=== PATIENT | female | born 1965 | race Caucasian/White ===

== ENCOUNTER → 2016-04-11 | Outpatient (CLI) | payer BC ==
[~2016-04-11] VITALS: Ht 162.6 cm; Wt 86.5 kg
[~2016-04-11] MED LIST: AMITRIPTYLINE H10 M3 PO; DULCOLAX5 MG PO; FIBER LAXATIVE500 MG PO; KLONOPIN0.5 MG PO; MIRALAX17 GM PO; NEURONTIN 300300 M1 PO; ONDANSETRON HCL4 M2 PO; OXYCODONE PO; PREVACID30 MG PO; ZANAFLEX4 M2 PO
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
[2016-04-11 10:39] VITALS: BP 124/79
== END | disposition home or self-care (01) ==
LOC: PAIN 07:15
DX: M94.0 Chondrocostal junction syndrome [Tietze] (principal)

== ENCOUNTER → 2016-08-02 | Outpatient (CLI) | payer BC ==
[~2016-08-02] VITALS: Ht 162.6 cm; Wt 88.8 kg
[~2016-08-02] MED LIST changes: +AMITRIPTYLINE H25 M2 PO
--- NOTE | ~2016-08-02 | HPC ---
[facility] [address] [place] [address] PAIN MANAGEMENT CONSULTATION Name: CHRISTIANO MEJIA Room #: REG LAURIE DiamondJennDoroteoJenn#: [id number] Admission: 08/02/16 Attend Phys: Olga Pineda MD Discharge: Date of : 67 Report #: [id number] THIS REPORT FOR: //name// CC: HALEY Pineda DATE OF SERVICE: 08/02/2016 PRIMARY CARE PHYSICIAN: Dr. Haley Alicea. The patient states she lives about [address] from here and she lives in [place], [place]. She said that her physician has not gotten previous dictations. Again, his name is Haley Alicea M.D. CHIEF COMPLAINT: " I have noticed that the pain is coming back around the left side again." FOLLOWUP HISTORY: The patient is a 50-year-old female who has been seen in the pain clinic in the past because of costochondritis. This involves the left side. She had some on the right side as well. She has undergone injections, trigger point to these areas in the past. She received greater than 4 months of improvement. 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 Sometimes it requires moving cases of Pop and other items around. When she has done this, she has noted exacerbation of her costochondritis, particularly on the left. She has tried to do less of that and has had less pain as a result. 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 She feels that Elavil 30 mg at bedtime has been quite helpful. Once she falls asleep, she is able to sleep comfortably through the night. She also finds that Zanaflex medication as a muscle relaxant is helpful. She has had no complications from the previous treatments nor from her medications. She has driven 3 [address] to [place] for another treatment course. PHYSICAL EXAMINATION: Blood pressure 123/94, pulse 77, respiratory rate 16, room air saturation 98%. The patient has pain and discomfort in the left costophrenic area. Palpation over the manubrium and sternal area reproduces pain and discomfort. She notes that there is some pain on the right side of the manubrium as well as pain radiating along the left to approximately T8 or T9. IMPRESSION: Left costochondritis, which is improved after infiltration of the area with local anesthetic and steroid. RECOMMENDATIONS: We discussed treatment options again with the patient. Risks and benefits of trigger point injections, which could include increased muscle soreness, discoloration of the skin with less tanning ability secondary to [facility] [address] [place] [address] PAIN MANAGEMENT CONSULTATION Name: CHRISTIANO MEJIA Room #: REG CLI Su#: [id number] Admission: 08/02/16 Attend Phys: Olga Pineda MD Discharge: Date of : 67 Report #: [id number] effect of steroid on melanocytes, possible pneumothorax with shortness of breath, requiring chest tube placement. The patient elects to proceed. PROCEDURE NOTE: The patient was placed in the prone position. Her left costophrenic area and area of the manubrium and sternal area were sterilely prepped with a chlorhexidine solution and allowed to dry. A 25-gauge needle was then used to identify the costophrenic areas, which were painful. A total of 10 mL of 0.5% bupivacaine with 40 mg triamcinolone was injected along the right vertebral sternal rib. It was also injected with an additional 7 mL along the left costophrenic area. A 3 mL solution was injected along the right costophrenic vertebral area. The patient's pain decreased to 0 at the time of discharge. She has been given a script for Elavil. She used Elavil 30 mg p.o. at bedtime. We will try Elavil 25 mg at bedtime. She can if needed take an additional 25 mg tablet for a total of 50 mg at bedtime. She has been given a script for Zanaflex 1 tablet 4 mg q. 8 hours if needed. She may continue with her primary care physician at home. She could return to [place] if she needed injections. Otherwise, her primary physician could continue with her current medications given that she has to drive 3 hours to get to [place]. He could call us if she wanted to chat with us. We would like to thank you for letting us participate in her care. We hope she continues to improve. By: [id number] Olga Pineda MD /veronica
[2016-08-02 10:00] VITALS: BP 123/94
== END ==
LOC: PAIN 06:52
DX: M94.0 Chondrocostal junction syndrome [Tietze] (principal)